=== PATIENT | male | born 1945 | race Caucasian/White ===

== ENCOUNTER → 2020-04-03 09:37 | Outpatient (CLI) | payer OTHER, SELFPAY | PROVIDERS: PCP Family Medicine; Referring Provider Family Medicine; Visit Provider Family Medicine | DX: R06.7 Sneezing (principal); R09.81 Nasal congestion; R07.89 Other chest pain | CPT/HCPCS: 87635; 94799; U0003 ==

== ENCOUNTER 2020-10-25 17:53 | Outpatient (RCR) | payer MEDICARE, SELFPAY ==
[2020-10-25] MEDS: COVID-19 VACC, MRNA(PFIZER)/PF 30 MCG/0.3 ML SYRINGE IM (14:40)
[2020-11-15] MEDS: COVID-19 VACC, MRNA(PFIZER)/PF 30 MCG/0.3 ML SYRINGE IM (14:29)
== END 2021-01-29 23:59 ==
LOC: IMMUN 17:53
PROVIDERS: PCP Family Medicine; Visit Provider Family Medicine
DX: Z23 Encounter for immunization (principal)
CPT/HCPCS: 0001A; 0002A; 91300